=== PATIENT | female | born 1975 | race Two or more races ===

== ENCOUNTER 2023-08-11 09:11 | Emergency (ER) | payer OTHER ==
[~2023-08-11] VITALS: Ht 162.6 cm; Wt 68.0 kg
[2023-08-11] MEDS ORDERED: INDERAL XL80 MG (09:33)
== END 2023-08-11 14:34 | disposition home or self-care (01) ==
LOC: ER 09:11
DX: R53.81 Other malaise (principal); I10 Essential (primary) hypertension